=== PATIENT | female | born 1975 | race African-American/Black ===

== ENCOUNTER 2023-02-15 14:30 | Emergency (ER) | payer MEDICAID ==
[~2023-02-15] VITALS: Ht 162.6 cm; Wt 101.0 kg
[2023-02-15 14:52] LABS: BASOPHILS % 0.6 % (0.0-2.0); EOSINOPHILS % 2.2 % (0.0-5.0); HEMOGLOBIN. 13.3 g/dL (12.0-16.0); LYMPHOCYTES % 22.1 % (20.0-50.0); MEAN CORPUSCULAR HEMOGLOBIN 26.2 pg (28.0-32.0); MEAN CORPUSCULAR VOLUME 79.1 fL (81.0-99.0); MEAN PLATELET VOLUME 8.1 fl (7.4-10.4); MONOCYTES % 7.4 % (2.0-8.0); NEUTROPHILS % 67.7 % (40.0-76.0); PLATELET 229 x1000/uL (130-400); RED BLOOD CELL COUNT 5.06 mill/uL (4.2-5.4); RED CELL DISTRIBUTION WIDTH 17.9 % (11.6-14.6)
[2023-02-15 14:59] LABS: CHLORIDE 107 mEq/L (98-107)
[2023-02-15 16:00] VITALS: BP 142/79
== END 2023-02-15 17:33 | disposition home or self-care (01) ==
LOC: ER 14:50
DX: R07.2 Precordial pain (principal); I10 Essential (primary) hypertension; E11.9 Type 2 diabetes mellitus without complications; F17.210 Nicotine dependence, cigarettes, uncomplicated
CPT/HCPCS: 36415; 71045; 80053; 81025; 84484; 85025; 93005; 99285